=== PATIENT | male | born 1990 | race Two or more races ===

== ENCOUNTER 2021-04-26 13:49 | Outpatient (REF) | payer MEDICAID, SELFPAY ==
[2021-04-26 14:36] LABS: Binax Internal Control QC Valid; Binax Lot number: 9864; Binax Now Covid-19 Ag Negative (Negative)
== END 2021-04-26 13:50 | disposition home or self-care (01) ==
LOC: HO.LAB 13:49
PROVIDERS: Visit Provider Internal Medicine
DX: Z20.822 Contact with and (suspected) exposure to COVID-19 (principal)
CPT/HCPCS: C9803

== ENCOUNTER 2021-05-02 15:01 | Outpatient (REF) | payer MEDICAID, SELFPAY ==
[2021-05-02 15:36] LABS: Binax Internal Control QC Valid; Binax Now Covid-19 Ag Negative (Negative)
== END 2021-05-02 15:02 | disposition home or self-care (01) ==
LOC: HO.LAB 15:01
PROVIDERS: Visit Provider Internal Medicine
DX: Z20.822 Contact with and (suspected) exposure to COVID-19 (principal)
CPT/HCPCS: C9803